=== PATIENT | male | born 1970 | race Caucasian/White ===

== ENCOUNTER 2019-04-26 10:05 | Emergency (ER) | payer BC ==
[~2019-04-26] VITALS: Ht 177.8 cm; Wt 86.2 kg
[2019-04-26 10:58] LABS: ABSOLUTE NEUTROPHILS 3.3 thou/uL (1.4-8.2); BASOPHILS 0.9 % (0.0-2.0); EOSINOPHILS 3.5 % (0.0-3.0); HEMOGLOBIN 15.7 gm/dL (14.0-18.0); LYMPHOCYTES 26.6 % (24.0-44.0); MCH 30.2 pg (26.0-34.0); MCV 86.5 fL (80.0-100.0); MONOCYTES 10.5 % (1.0-8.0); PLATELET COUNT 245 thou/uL (150-400); POLYS 58.5 % (36.0-66.0); RDW 13.8 % (10.5-14.5); WBC 5.7 thou/uL (4.0-11.0)
[2019-04-26 11:12] LABS: CALCIUM 8.8 mg/dL (8.5-10.1); POTASSIUM 3.9 mmol/L (3.5-5.1)
[2019-04-26 11:18] LABS: ALBUMIN 3.6 g/dL (3.4-5.0); TOTAL BILIRUBIN 0.6 mg/dL (<0.1-1.0); TOTAL PROTEIN 7.2 g/dL (6.4-8.2)
[2019-04-26 12:21] LABS: URINE BILIRUBIN NEGATIVE (Negative); URINE BLOOD NEGATIVE (Negative); URINE CLARITY CLEAR; URINE COLOR YELLOW; URINE GLUCOSE-RANDOM* NEGATIVE (Negative); URINE KETONES NEGATIVE (Negative); URINE LEUKOCYTES-REFLEX NEGATIVE (Negative); URINE NITRITE-REFLEX NEGATIVE (Negative); URINE PROTEIN (DIPSTICK) NEGATIVE (Negative); URINE UROBILINOGEN 0.2 E.U./dl (0.2-1.0)
[2019-04-26 12:40] VITALS: BP 127/99
== END 2019-04-26 12:40 | disposition home or self-care (01) ==
LOC: ER 10:05
PROVIDERS: Physician Assistant
DX: R10.32 Left lower quadrant pain (principal)

== ENCOUNTER 2021-04-02 09:25 | Inpatient (IN) | payer BC, OTHER ==
[~2021-04-02] VITALS: Ht 175.3 cm; Wt 80.3 kg
[2021-04-02] VITALS (7 sets, daily range): BP systolic 118–148; BP diastolic 75–89
[~2021-04-02 09:25] MED LIST: DOXYCYCLINE 10100 MG PO; NAPROSYN500 MG PO; TYLENOL325 M1 PO
[2021-04-02 10:22] LABS: HEMATOCRIT 43.8 % (42.0-52.0); HEMOGLOBIN 14.8 gm/dL (14.0-18.0); MCH 29.4 pg (26.0-34.0); MCHC 33.8 g/dL (28.0-37.0); MCV 87.1 fL (80.0-100.0); PLATELET COUNT 287 thou/uL (150-400); RBC 5.03 mil/uL (4.50-6.00); RDW 14.3 % (10.5-14.5); WBC 17.5 thou/uL (4.0-11.0)
[2021-04-02 10:46] LABS: ANION GAP 10 mmol/L (7-16); BUN 18 mg/dL (7-18); CALCIUM 8.4 mg/dL (8.5-10.1); CHLORIDE 101 mmol/L (98-107); CO2 24 mmol/L (21-32); GLUCOSE 107 mg/dL (74-106); SODIUM 135 mmol/L (136-145)
[2021-04-02 10:57] LABS: ALBUMIN 2.6 g/dL (3.4-5.0); DIRECT BILIRUBIN 0.4 mg/dL (<0.1-0.2); SGOT 99 U/L (15-37); SGPT 385 U/L (30-65); TOTAL BILIRUBIN 0.9 mg/dL (0.2-1.0); TOTAL PROTEIN 7.3 g/dL (6.4-8.2); TROPONIN-I <0.06 ng/mL (<0.06)
[2021-04-02] MEDS ORDERED: FLEXERIL PO (11:40)
[2021-04-02] MEDS ORDERED: NORCO7.5 PO (11:40)
--- NOTE | 2021-04-02 13:38 | NUR ---
ADMISSION: PT ARRIVED TO UNIT APPROXIMATELY 1120 FROM ED. PT ALERT, LETHARGIC, WEAK. PT NODDED OFF FREQUENTLY DURING ASSESSMENT/QUESTIONS. PT STATES HE HAS BEEN NODDING OFF SINCE HE STARTED FEELING BAD. PT HAS 2 PATENT IV SITES. IS ABLE TO USE URINAL. FALL PRECAUTIONS IN PLACE. PT HAS RAISED RED AREA ON R FOREARM. PT UNSURE HOW THE RED AREA APPEARED. THIS RN NOTIFIED DR DREW OF DUPLICATE ORDERS WELL RED AREA ON FOREARM. PT SISTER VISITING. STATES THEY HAVE A LOT OF SPIDERS IN THE HOME AND HAS CONCERNS IT MAY BE A SPIDER BITE.
[2021-04-02 13:41] LABS: ABSOLUTE NEUTROPHILS 14.4 thou/uL (1.4-8.2); METAMYELOCYTES 1 %
--- NOTE | 2021-04-02 16:29 | NUR ---
PT STATES DIFFICULTY URINATING, ONLY HAD "A DRIBBLE" THIS MORNING. UNABLE TO VOID ON BSC. PT REQUESTED TO BE STRAIGHT CATH. THIS RN USED BLADDER SCANNER, 889ML ON SCAN. REPORTED TO DR DREW. STRAIGHT CATH AND ENEMA ORDERED PRN.
--- NOTE | 2021-04-02 21:10 | NUR ---
2015: DR EATON HERE TO SEE PATIENT. CT SCAN ORDERED AND CALL BACK REQUESTED FOR TONIGHT ON RESULTS.
--- NOTE | 2021-04-02 21:11 | NUR ---
2005: PT TAKEN TO CT SCAN
[2021-04-03 00:17] VITALS: BP 124/94
--- NOTE | 2021-04-03 01:15 | NUR ---
ATTEMPTED TO NOTIFY DR EATON OF RESULTS OF THE CT SCAN,IRVIN. LEFT MESSAGE WITH ANSWERING SERVICE. ALSO, PHONED HIS HOME NUMBER WITH ANSWER.
--- NOTE | 2021-04-03 01:17 | NUR ---
BLADDER SCANNED AT THIS TIME. RESULT OF 440 IN BLADDER, PT IS NOT UNCOMFORTABLE AND REFUSES TO BE STRIAGT CATHETERIZED AT RIGHT NOW. HE COMPLAINS OF HUNGER AND IS EATING A SANDWICH BOX LUNCH. NEW ORDER FOR ADDITIONAL ANTIBIOTICS STARTED. CONTINUES ON IV FLUIDS.
[2021-04-03 02:00] VITALS: BP 124/94
[2021-04-03 03:24] VITALS: BP 128/82
--- NOTE | 2021-04-03 04:33 | NUR ---
continues to try to use the urinal. he is feeling the urge to urinate. refuses to allow a straight cath at this time.
[2021-04-03 05:37] LABS: URINE BILIRUBIN NEGATIVE (Negative); URINE BLOOD NEGATIVE (Negative); URINE CLARITY CLEAR; URINE COLOR YELLOW; URINE GLUCOSE-RANDOM* NEGATIVE (Negative); URINE KETONES NEGATIVE (Negative); URINE LEUKOCYTES-REFLEX NEGATIVE (Negative); URINE NITRITE-REFLEX NEGATIVE (Negative); URINE PROTEIN (DIPSTICK) 1+ (Negative); URINE UROBILINOGEN >= 8.0 E.U./dl (0.2-1.0)
[2021-04-03 05:48] LABS: AMP/METHAMP POSITIVE (Negative); BARBITURATES Negative (Negative); BENZODIAZEPINES Negative (Negative); COCAINE Negative (Negative); METHADONE Negative (Negative); OPIATES POSITIVE (Negative); PCP Negative (Negative)
[2021-04-03 05:53] LABS: ABSOLUTE NEUTROPHILS 6.9 thou/uL (1.4-8.2); BASOPHILS 0.5 % (0.0-2.0); EOSINOPHILS 1.9 % (0.0-3.0); HEMATOCRIT 40.2 % (42.0-52.0); HEMOGLOBIN 13.5 gm/dL (14.0-18.0); LYMPHOCYTES 16.1 % (24.0-44.0); MCH 29.8 pg (26.0-34.0); MCHC 33.6 g/dL (28.0-37.0); MCV 88.9 fL (80.0-100.0); MONOCYTES 14.7 % (1.0-8.0); PLATELET COUNT 243 thou/uL (150-400); POLYS 66.8 % (36.0-66.0); RBC 4.52 mil/uL (4.50-6.00); RDW 14.9 % (10.5-14.5); WBC 10.3 thou/uL (4.0-11.0)
[2021-04-03 05:55] LABS: BACTERIA-REFLEX 1-9 Few /HPF (None Seen); CASTS None Seen /LPF (None Seen); CRYSTALS None Seen /LPF (None Seen); MUCUS 4-6 Moderate strn/LPF (None Seen); SQUAMOUS None Seen /LPF (0-3); URINE RBC None Seen /HPF (NONE SEEN); URINE WBC-REFLEX 0-5 Rare /HPF (0-5)
[2021-04-03 06:16] LABS: ALBUMIN 2.5 g/dL (3.4-5.0); CALCIUM 8.2 mg/dL (8.5-10.1); POTASSIUM 4.4 mmol/L (3.5-5.1); TOTAL PROTEIN 7.5 g/dL (6.4-8.2)
[2021-04-03 07:56] VITALS: BP 144/85
[2021-04-03 15:57] VITALS: BP 148/81
--- NOTE | 2021-04-03 16:06 | NUR ---
DR JACK, ENT RETURNED CALL FOR CONSULT. THIS RN PROVIDED REPORT, DR JACK STATED HE WOULD REACH OUT TO DR EATON FOR DIRECT COMMUNICATION. STATED HE HAD HIS PHONE NUMBER.
--- NOTE | 2021-04-03 17:59 | NUR ---
PT FAMILY, BRIDGET SKINNER, REQUESTED TO THIS RN THAT THE PT GIRLFRIEND, ALICIA GRAY TO NOT BE ALLOWED TO VISIT PT DUE TO NEW INFORMATION PRESENTED IN FRONT OF DR EATON OF PT DRUG USE/PT GIRLFRIEND DRUG USE. THIS RN CONTACTED [employer], [employer]; SPOKE TO GERARDO CAMEJO PAEDIATRIC THORACIC PHYSICIAN; SECURITY, STEVE TO VERIFY CORRECT PROCEDURE IN MAKING PT CONFIDENTIAL. THIS RN SPOKE TO YURI, ADMITTING TO CHANGE PT TO CONFIDENTIAL, PLANS WILL BE TO MOVE PT TO ROOM 362 BY NURSING STATION FOR CLOSE OBSERVATION.
[2021-04-03 19:42] VITALS: BP 136/84
--- NOTE | 2021-04-03 19:55 | NUR ---
PAGED DR. YOANA EATON REGARDING [facility] TROUGH OF 12 AWAITING RETURN CALL.
[2021-04-04 00:05] LABS: HEP B SURFACE Ab(ANTI-HBS Non Reactive (()); HEPATITIS B SURFACE AG Negative (Negative); HEPATITIS C VIRUS AB >11.0 (0.0-0.9); HIV ANTIBODY Non Reactive (Non Reactive)
[2021-04-04 03:56] VITALS: BP 138/88
[2021-04-04 05:20] LABS: ABSOLUTE NEUTROPHILS 6.2 thou/uL (1.4-8.2); BASOPHILS 0.4 % (0.0-2.0); EOSINOPHILS 2.2 % (0.0-3.0); HEMATOCRIT 36.8 % (42.0-52.0); HEMOGLOBIN 12.7 gm/dL (14.0-18.0); LYMPHOCYTES 13.8 % (24.0-44.0); MCH 30.2 pg (26.0-34.0); MCHC 34.5 g/dL (28.0-37.0); MCV 87.7 fL (80.0-100.0); MONOCYTES 13.5 % (1.0-8.0); PLATELET COUNT 269 thou/uL (150-400); POLYS 70.1 % (36.0-66.0); RBC 4.19 mil/uL (4.50-6.00); RDW 14.4 % (10.5-14.5); WBC 8.8 thou/uL (4.0-11.0)
[2021-04-04 05:30] LABS: ALBUMIN 2.4 g/dL (3.4-5.0); CALCIUM 8.2 mg/dL (8.5-10.1); CREATININE 0.9 mg/dL (0.7-1.3); POTASSIUM 3.9 mmol/L (3.5-5.1); TOTAL BILIRUBIN 1.2 mg/dL (0.2-1.0)
--- NOTE | 2021-04-04 07:27 | NUR ---
progress iv fluids and iv antibiotics admininstered as ordered 1 dose of hydrocodone given and one dose of morphine, pt slept most of shift warm blankets to neck for comfort moved to room 362 to monitor visitors for pt safety.
[2021-04-04 07:51] VITALS: BP 174/105
--- NOTE | 2021-04-04 11:16 | 2DMMODE ---
[facility] [address] [place] [address] 2 D/M-MODE ECHOCARDIOGRAM Name: FAY SKINNER Room #: 362-P ADM IN M.R.#: [id number] Admission: 04/02/21 Attend Phys: Bennie Newton Discharge: Date of : 72 Report #: [id number] THIS REPORT FOR: cc: FAM - No family physician/PCP FAM - No family physician/PCP Charles Flores MD ~ APPROVED REPORT Study performed: 04/04/2021 10:29:54 EXAM: Comprehensive 2D, Doppler, and color-flow Echocardiogram Patient Location: Bedside Room #: 362 Status: routine BSA: 2.08 HR: 110 bpm BP: 175/105 mmHg Rhythm: Sinus Tach Other Information Study Quality: Good Indications Fever, bacteremia, evaluate for endocarditis. 2D Dimensions RVDd: 39.32 mm IVSd: 10.10 (7-11mm) LVOT Diam: 20.58 (18-24mm) LVDd: 55.34 mm PWd: 10.29 (7-11mm) Ascending Ao: 32.57 (22-36mm) LVDs: 38.39 (25-40mm) Left Atrium: 40.55 (27-40mm) Aortic Root: 31.38 mm Volumes Left Atrial Volume (Systole) Single Plane 4CH: 39.95 mL Single Plane 2CH: 52.84 mL LA ESV Index: 24.00 mL/m2 Aortic Valve AoV Peak Gerald.: 2.20 m/s AO Peak Gr.: 19.34 mmHg LVOT Max P.25 mmHg LVOT Max V: 1.60 m/s NINA Vmax: 2.42 cm2 [facility] [address] [place] [address] 2 D/M-MODE ECHOCARDIOGRAM Name: FAY SKINNER Room #: 362-P [facility].#: [id number] Admission: 04/02/21 Attend Phys: Bennie Agarwal Discharge: Date of : 72 Report #: [id number] Mitral Valve E/A Ratio: 0.7 MV Decel. Time: 124.67 ms MV E Max Gerald.: 0.83 m/s MV A Gerald.: 1.24 m/s MV PHT: 36.15 ms IVRT: 57.67 ms Pulmonary Valve PV Peak Gerald.: 1.32 m/s PV Peak Gr.: 6.93 mmHg Tricuspid Valve TR Peak Gerald.: 2.68 m/s RAP Estimate: 7.00 mmHg TR Peak Gr.: 29.00 mmHg PA Pressure: 36.00 mmHg Left Ventricle The left ventricle is normal size. There is normal LV segmental wall motion. There is normal left ventricular wall thickness. Left ventricular systolic function is normal. LVEF is 55-60%. Mild diastolic dysfunction is present (impaired relaxation pattern). Right Ventricle The right ventricle is normal size. The right ventricular systolic function is normal. Atria The left atrium size is normal. The right atrium size is normal. Aortic Valve The aortic valve is normal in structure. No aortic regurgitation is present. There is no aortic valvular stenosis. Mitral Valve The mitral valve is normal in structure. There is no mitral valve regurgitation noted. No evidence of mitral valve stenosis. Tricuspid Valve The tricuspid valve is normal in structure. Trace tricuspid regurgitation. Estimated PAP is 36mmHg. Pulmonic Valve The pulmonary valve is normal in structure. There is no pulmonic [facility] [place] [address] 2 D/M-MODE ECHOCARDIOGRAM Name: FAY SKINNER Room #: 362-P [facility] IN M.R.#: [id number] Admission: 04/02/21 Attend Phys: Bennie Agarwal Discharge: Date of : 72 Report #: [id number] valvular regurgitation. Great Vessels The aortic root is normal in size. The ascending aorta is normal in size. IVC is normal in size and collapses <50% with inspiration. Pericardium There is no pericardial effusion. <Conclusion> The left ventricle is normal size. Left ventricular systolic function is normal. LVEF is 55-60%. The aortic valve is normal in structure. No aortic regurgitation is present. The mitral valve is normal in structure. There is no mitral valve regurgitation noted. The tricuspid valve is normal in structure. Trace tricuspid regurgitation. Estimated PAP is 36mmHg. The pulmonary valve is normal in structure. The aortic root is normal in size. There is no pericardial effusion. <ELECTRONICALLY SIGNED> By: Charles Flores MD 04/04/21 1116 111 111 Charles Flores MD /INF
[2021-04-04 12:02] VITALS: BP 161/100
[2021-04-04 15:58] VITALS: BP 164/114
--- NOTE | 2021-04-04 19:48 | NUR ---
ASSUMED PATIENT CARE AT 0700. A/O X2-3. DROWSY. FEBRLIE. BP ELAVETED. RIGHT ARM AND HAND EDEMA. WILL HAVE US. CONSULTED DR NICHOLS. WILL REPEAT CT OF NECK IN AM. PAIN MEDS GIVEN. FAMILY AND BEDSIDE. NOT TOWARDS POC GOALS.
[2021-04-04 20:00] VITALS: BP 151/94
[2021-04-05 04:00] VITALS: BP 159/100
--- NOTE | 2021-04-05 06:33 | NUR ---
ASSESSMENT DOCUMENTED.PT BEEN RESTING IN MILD ACUTE DISTRESS.PT SLEEPING MOST OF THE TIME BUT EASY TO AROUSE.A/OX4.C/O PAIN TO BACK/SHOULDERS AND NECKS THAT IS RELIEVED BY REPOSITIONING AND PAIN MEDS.FEBRILE,TYLENOL SUPP GIVEN PER ORDER.ON ABT Q4H.RIGHT ARM EDEMATOUS AND HAS ERYTHEMA,ELEVATED ON PILLOW.NO SIGNIFICANT CHANGES NOTED THIS SHIFT.WILL CONT TO MONITOR PER POC.
[2021-04-05 07:42] VITALS: BP 148/86
--- NOTE | 2021-04-05 14:27 | NUR ---
INITIAL ASSESSMENT: ALEXANDRU reviewed chart and spoke with nursing and attending physician. Pt was admitted from home due to bacteremia. Pt is febrile and on IV abx. Pt to have CT scan and MRI today. Per chart, pt with hx of IV drug use. ALEXANDRU met with pt at bedside. No family present. Introduced role of SW. Pt is lethargic but alert/orientated. Pt reports he lives at home with his brother. Prior to admission, pt was independent with ADLs. No use of DME. Pt does not currently have a PCP. ALEXANDRU discussed with pt that he is listed as a confidential pt. Pt states he does not feel that is necessary. ALEXANDRU reviewed authorized contact list, which has his sister, Radha. Pt confirms and states he does not wish to add anyone else to the contact list. ALEXANDRU updated pt's nurse. Therapy evals requested. ALEXANDRU is following to assist as needed with discharge planning.
[2021-04-05 15:32] VITALS: BP 155/98
--- NOTE | 2021-04-05 18:06 | NUR ---
ASSUMED PATIENT CARE AT 0700. A/0 X3. DROWSY. AFEBRILE. VSS. PAIN MEDS GIVEN. WILL NPO AFTER MIDNIGHT TO HAVE RIGHT ARM ABCESS DRAIN. SLOWLY TOWARDS POC GOALS.
[2021-04-05 20:22] VITALS: BP 154/108
[2021-04-06 05:25] VITALS: BP 175/102
[2021-04-06 05:49] LABS: HEMATOCRIT 40.1 % (42.0-52.0); HEMOGLOBIN 13.6 gm/dL (14.0-18.0); MCH 29.5 pg (26.0-34.0); MCHC 33.8 g/dL (28.0-37.0); MCV 87.2 fL (80.0-100.0); PLATELET COUNT 339 thou/uL (150-400); RDW 14.8 % (10.5-14.5); WBC 13.7 thou/uL (4.0-11.0)
[2021-04-06 06:05] LABS: ALBUMIN 2.3 g/dL (3.4-5.0); CALCIUM 8.1 mg/dL (8.5-10.1); CREATININE 0.8 mg/dL (0.7-1.3); POTASSIUM 4.3 mmol/L (3.5-5.1); TOTAL BILIRUBIN 1.3 mg/dL (0.2-1.0); TOTAL PROTEIN 7.3 g/dL (6.4-8.2)
[2021-04-06 06:33] LABS: ABSOLUTE NEUTROPHILS 9.7 thou/uL (1.4-8.2)
[2021-04-06 06:34] LABS: PLATELET ESTIMATE NORMAL
--- NOTE | 2021-04-06 07:36 | NUR ---
IVF AND PAIN MANAGEMENT WAS POC FOR EVENING. PT IS A/0X2 AND IS VERY IMPULSIVE. PT ALSO REMOVES TELE FREQUENTLY. ID ROUNDED AND HAD NEURO SURGERY CONSULTED. SPOKE TO THE PA FROM . SAID PT WILL NEED TO BE TRANSFERRED TO [facility] DUE TO DR MARTINEZ BEING ON VACATION. DR[place] [facility] [place]. MART[place]Z. CALLED [facility]. ALL 37 PAGES FAXED TO [facility]. CALLED BACK AND SAID TO CALL BACK AT 0800 ON 04/06 TO SEE WHEN BED WILL BE AVAILABLE. ALL PAPER WORK IN [employer] WITH TRANSFER FORM AND [facility] TRANSPORT FORM. INFORMATION PASSED ON TO ON COMING NURSE.
[2021-04-06 08:18] VITALS: BP 155/104
--- NOTE | 2021-04-06 08:20 | NUR ---
ALEXANDRU notified by attending physician this morning that pt needs to transfer to [facility] for neurosurgery services due to epidural abscess at C3-C4. patient scheduling manager nurse had contacted the [facility] transfer center and faxed over clinical. ALEXANDRU placed call to [facility] Transfer center and spoke with NGHIA Calixto. Additional info provided. Contact info for attending physician provided. Awaiting for acceptance by [facility] and a bed assignment. ALEXANDRU spoke with Arielle in radiology to have images uploaded to the [facility] to [facility]. [facility] ambulance form and Transfer form placed on pt's chart. Chart copy completed. ALEXANDRU is following to assist as needed with transfer.
[2021-04-06 16:00] VITALS: BP 164/101
--- NOTE | 2021-04-06 18:31 | NUR ---
ASSUMED PATIENT CARE AT 0700. A/O X4 DROWSY. PAIN MEDS GIVEN NEED. VSS. AFEBRILE. WILL TRANSFER TO [place] [address] AT 2030.
== END 2021-04-06 21:17 | disposition short-term general hospital (02) | DRG 871 ==
LOC: ER 09:25 → 3W 09:51 → EROBS 09:51 → 3W 09:51
PROVIDERS: Emergency Medicine; Specialist; ADMIT Hospitalist; ATTEND Hospitalist
DX: A41.9 Sepsis, unspecified organism (principal); G03.9 Meningitis, unspecified; G06.2 Extradural and subdural abscess, unspecified; L02.11 Cutaneous abscess of neck; I38 Endocarditis, valve unspecified; E87.1 Hypo-osmolality and hyponatremia; M86.8X8 Other osteomyelitis, other site; B95.8 Unspecified staphylococcus as the cause of diseases classified elsewhere; F90.9 Attention-deficit hyperactivity disorder, unspecified type; F10.20 Alcohol dependence, uncomplicated; Y90.9 Presence of alcohol in blood, level not specified; I07.1 Rheumatic tricuspid insufficiency; M46.42 Discitis, unspecified, cervical region; Z20.822 Contact with and (suspected) exposure to COVID-19; Z79.899 Other long term (current) drug therapy; Z23 Encounter for immunization
CPT/HCPCS: 10879

== ENCOUNTER → 2021-11-01 | Outpatient (CLI) | payer BC, OTHER ==
[~2021-11-01] VITALS: Ht 177.8 cm; Wt 79.4 kg
[~2021-11-01] MED LIST changes: +DIAZEPAM 5 MG5 M1 PO; +ELIQUIS5 MG PO; +ENDOCET 7.5-321 EACH PO; +FLEXERIL PO; +LIDODERM1 EACH TOP; +METHOCARBAMOL750 MG PO; +NEURONTIN 300M300 M2 PO; +NORCO7.5 PO; +PERCOCET 10-321 EAC1 PO; +TOBREX5 ML OPHTHALMIC
[2021-11-01 10:06] VITALS: BP 120/85
--- NOTE | 2021-11-01 10:25 | NUR ---
Pain Clinic Assessment: 1. History of Osteoarthritis: BACK BILATERAL KNEES History of Rheumatoid Arthritis: 2. Height: 5 ft. 10 in. 177.8 cm. Weight: 175.0 lb. oz. 79.380 kg. Patient's BMI: 25.1 3. Vital Signs: BP: 120/85 Pulse: 101 Resp: 14 Temp: 02 Sat: 95 ECG Mon: 4. Pain Intensity: 6 5. Fall Risk: Dizziness: N Needs help standing or walking: Y Fallen in the last 3 months: N Fall risk comments: 6. Patient on Blood Thinner: ELIQUIS 7. History of Hypertension: N 8. Opioid Therapy greater than 6 weeks: Opiate Contract Signed: 9. Risk Assessment Tool Provided: 3 LOW RISK 10. Functional Assessment Tool: 65/70 11. Recreational Drug Use: Never Drug Type: Tobacco Use: Vaping Tobacco Type: E-Cigarettes Amount or Packs/day: How Many Years: Alcohol Use: No Frequency: Quant:
--- NOTE | 2021-11-02 09:44 | HPC ---
[facility] [place] [address] PAIN MANAGEMENT CONSULTATION Name: FAY WELCH Chuck Room #: REG KATHY Odonnell#: [id number] Admission: 11/01/21 Attend Phys: Eric Ann DO Discharge: Date of : 72 Report #: [id number] THIS REPORT FOR: cc: Eric Small,Eric Silverman DO ~ cc: Eric Small DO DATE OF SERVICE: 11/01/2021 REFERRING PHYSICIAN: Dr. Eric Small. CHIEF COMPLAINT: Body wide pain. HISTORY OF PRESENT ILLNESS: As you know, the patient is an unfortunate 51-year-old male who began experiencing neck pain, upper extremity pain, low back pain and bilateral lower extremity pain on 04/01/2021. The patient was found to have a spontaneous development of osteomyelitis of the cervical spine, requiring a 9-hour surgery to address. This was performed at the [facility] at the [place]. He was treated by Dr. Lu, the neurosurgeon. He has had continued upper extremity pain and paresthesias that had been treated by his primary care physician with Percocet 7.5/325 2 tabs per day. The patient was complaining that his symptoms were not well controlled with that dosing of medication and he was advised by his primary care physician that they would not be able to provide opioid medications greater than 7.5 mg of oxycodone twice a day. The patient was advised that the physician's licensure would not allow for higher dosing. The patient was given the opportunity to consult with Pain Management to be provided suggestions for treatment and adjustments in his therapy then to be returned to referring physicain to continue management. Mr. Welch was referred to our clinci to discuss options for treatment to optimize therapy and return his care to the referring physician to continue the suggested therapy. The patient reports today his pain is constant. He describes the pain more of a shooting, aching, sharp, numbness and tingling when describing pain. He places current pain score at 8/10. Daily average at 8-10/10. Worst pain has been is 10/10. The patient states the pain is present all day long. There does not to be any inciting activity that exacerbates symptoms and he has noted no benefit with current medication. He has been referred to our service to provide suggestions of treatment, optimize medication, and return his care to his PCP. PAST MEDICAL HISTORY: 1. Degenerative joint disease. 2. Osteoarthritis. 3. Osteomyelitis of the cervical spine. 4. Anxiety disorder. 5. Deep vein thrombosis requiring chronic anticoagulation. 6. Insomnia. [address] [address] PAIN MANAGEMENT CONSULTATION Name: FAY WELCH Room #: REG KATHY Odonnell#: [id number] Admission: 11/01/21 Attend Phys: Eric Ann DO Discharge: Date of : 72 Report #: [id number] PAST SURGICAL HISTORY: 1. Cervical laminectomy and fusion of C2 through C6. 1. Spinal cage implantation. SOCIAL HISTORY: The patient reports he is a nonsmoker. He denies IV or illicit drug use. Denies any chronic alcohol use. He is currently on permanent disability, has been so for 10 years for reports of osteoarthritis. He is not receiving any disability income or benefits due to his current symptoms. He is not in litigation in regards to his current pain. He is accompanied by his family member present in room today. REVIEW OF SYSTEMS: Positive for weight gain, fatigue and weakness, wearing corrective eyewear, nocturia, numbness and tingling sensations, incomplete paralysis, depression, insomnia, osteoarthritis. All other review of systems negative per 12-point review of systems other than those listed in history of present illness. Pain impact score 65-70 near complete interference of daily activities secondary to pain. ALLERGIES: No reported drug allergies. CURRENT MEDICATIONS: Methocarbamol 750 mg t.i.d., Eliquis 5 mg b.i.d., Percocet 7.5/325 one tab every 8 hours p.r.n. for pain, cyclobenzaprine 10 mg per day. IMAGING: MRI of cervical spine 04/24/2021 shows a disk osteomyelitis with epidural abscess from C3 through C5 and retropharyngeal abscess of the neck. PHYSICAL EXAMINATION: VITAL SIGNS: Blood pressure 120/85, pulse is 101, respiratory rate 14 and unlabored. The patient is 95% on room air. Height 5 feet 10 inches tall, weight 175 pounds, BMI calculated 25.1. GENERAL: Well-developed, well-nourished, well-hydrated 51-year-old male, appears his stated age. He is in no acute distress. Awake, alert and oriented x 3. Pain is rated today at 8/10. HEENT: Normocephalic, atraumatic. Pupils are round. He is wearing a facemask in compliance with COVID-19 regulations. Speech is normal and he is deemed a good historian. LUNGS: Clear, no wheeze, rhonchi or rales. CARDIOVASCULAR: Regular. No appreciable gallop, no rub. ABDOMEN: Soft. EXTREMITIES: Show no clubbing, no appreciable cyanosis, no edema. MUSCULOSKELETAL: Upper extremity strength is weakened bilaterally. There are contractures of the hands bilaterally. There does appear to be some muscle atrophy bilaterally. Weakness is noted with all actions of movement. There does not appear to be any clonus. There is no palpatory tenderness over the paraspinal musculature of cervical spine. Well-healed surgical scars are noted [address] [address] PAIN MANAGEMENT CONSULTATION Name: FAY WELCH Room #: REG KATHY Jerez.#: [id number] Admission: 11/01/21 Attend Phys: Eric Ann DO Discharge: Date of : 72 Report #: [id number] in the cervical area. He is intact to light touch from C5 through T1 dermatomes though the tactile sensation is "body." Lower extremity strength is decreased bilaterally. Due to deconditioning, the strength would be rated at 4.5/5 and symmetrical. ASSESSMENT: 1. Generalized pain secondary to osteomyelitis of the cervical spine and subsequent nerve injury. 2. Peripheral neuropathy. 3. Opioid dependency. 4. Chronic intractable pain. PLAN: 1. The patient has been referred to our service by the primary care team to assist in optimizing medication management with plans to return to the patient's care once that optimization has been completed. The patient is currently taking Percocet 7.5/325 one tab p.o. every 12 hours p.r.n. for pain and noting no benefit. We discussed with the patient that opioid medication is not a long-term medication management goal that the symptoms he is currently experiencing appears to be more neuropathic in origin, specifically with the symptoms of his upper extremities. He has been on chronic opioids for osteoarthritis of the hip and knees, though I am not aware of why the patient will be on any type of opioid medication for osteoarthritis as this is not the appropriate treatment course. We discussed this with the patient today. We have agreed to optimize his medication management as he has been left without Neurosurgery as his neurosurgeon has left the [facility]'s system and has not been able to reestablish care with any physicians there. He has been sent back to his primary care physician who has advised the patient that he is unable to write opioid medication greater than Percocet 7.5/325 twice a day based on licensure restrictions, though I am not aware of any licensure restrictions that would allow just that specific limitation. We have agreed to help optimize the patient's medication management, then returning his care back to the referring physician after optimization of treatment for chronic pain has been completed. I do feel that additional neuropathic medication will be of benefit. We also discussed the other treatment options as follows. We discussed that his improvement in symptoms, will require consistent physical therapy with strengthening and some deep desensitization for the peripheral neuropathy. This will be a major component of his treatment. We also discussed with the patient that an additional neuropathic medication will be beneficial. In conjunction with these adjustments in medication management, a higher dose of opioid medication at present might be agreeable with the understanding that the opioid medications would be weaned quite quickly as he shows improvement. We discussed also with the patient the possibility of an intrathecal pump implantation, though we do not offer that at our clinic. He could look at this type of treatment through [facility], Pain or [address] [address] PAIN MANAGEMENT CONSULTATION Name: FAY WELCH Room #: REG Doris Odonnell#: [id number] Admission: 11/01/21 Attend Phys: Eric Ann DO Discharge: Date of : 72 Report #: [id number] [facility]. We also discussed with the patient surgical options, though given the extent of his recent surgery, I am not confident that surgical options would provide much benefit. After reviewing the risks and benefits of all proposed treatment options, the patient agreed to make adjustments in medication management with understanding he will be returning to his PCP to continue therapy once optimized. 2. The patient will be started on gabapentin 300 mg dose. He will start 1 tab p.o. at bedtime for 3 nights and increase to 2 tabs p.o. at bedtime for 3 nights, then 3 tabs p.o. at bedtime for 3 nights. If no improvement in symptoms, no side effects of sleepiness, disorientation, confusion, and mental slowing, then begin 1 tab in the morning, continuing 3 tabs at night, continuing up to 3 tabs in the morning and 3 tabs at night or 900 mg b.i.d. If again no improvement in symptoms, no side effects, then begin titrating to reach 900 mg 3 times a day. He was given a titration schedule in written form to follow. A prescription of 270 gabapentin 300 mg tablets were sent to local pharmacy. The patient can contact our clinic with any questions or concerns in regards to the titration of medication. I did advise the patient during the titration once he notes improvement in symptoms, stabilize at that dose, no further escalation. 3. We have agreed to adjust the patient's oxycodone for a short period of time to increase the dose to 10 mg and provide the medication 3-4 times a day. This is not to be relied on prophylactically. I have given the patient #120 tablets with no refills. The patient will take the medication as directed. He is not to exceed more than 4 tablets a day and only used for 4 tablets if his pain is intolerable. The prescription was sent via e-scribe to local pharmacy. We did review the patient's PDMP. He does seem to be receiving medications through Dr. Small, who has been prescribing oxycodone 7.5/325 twice a day. Our plan is to see the patient back in followup visit in 1 month to review efficacy of the medication adjustments today. If the patient is not seeing much in the way of improvement or is relying on the opioid medication consistently, I would recommend a referral for an intrathecal pump to address his ongoing pain issues. I did advise the patient we would be providing no more than a 3-month period of treatment for adjustments and optimization of management and I will be returning his care to the referring physician to continue that care. The patient is agreeable with that plan and is agreeable with the understanding of 3 months of treatment through our services. 4. We wish to thank Dr. Small for the opportunity to see the patient in consultation. We will keep you apprised of his treatment as we optimize his medication in preparation for return back to your capable services. Hopeful the adjustments made in medication management will be beneficial. If it is not, I would recommend a referral to [facility], [place] [address] PAIN MANAGEMENT CONSULTATION Name: FAY WELCH Room #: REG KATHY Odonnell#: [id number] Admission: 11/01/21 Attend Phys: Eric Ann DO Discharge: Date of : 72 Report #: [id number] Lawson You for intrathecal pump therapy evaluation. Again, we wish to thank you for the opportunity to see the patient in consultation. <ELECTRONICALLY SIGNED> By: Eric Ann DO 11/02/21 0944 [id number] 2035 Eric Ann DO /nt
== END ==
LOC: PAIN 10-26 06:55
PROVIDERS: ATTEND Anesthesiology Pain Medicine
DX: G62.89 Other specified polyneuropathies (principal); G89.29 Other chronic pain; F11.20 Opioid dependence, uncomplicated; Z79.899 Other long term (current) drug therapy

== ENCOUNTER → 2021-11-29 | Outpatient (CLI) | payer BC, OTHER ==
[~2021-11-29] VITALS: Ht 177.8 cm; Wt 81.6 kg
[~2021-11-29] MED LIST changes: +AMBIEN 10 MG TA10 MG PO; +BACLOFEN 10MG T10 MG PO; +DULOXETINE HCL30 MG PO
--- NOTE | ~2021-11-29 | HPC ---
[facility] [address] [address] PAIN MANAGEMENT CONSULTATION Name: FAY SKINNER Room #: REG [facility] Belle#: [id number] Admission: 11/29/21 Attend Phys: Eric Ann DO Discharge: Date of : 72 Report #: [id number] THIS REPORT FOR: cc: Eric Small,Eric Silverman DO ~ cc: Eric Small DO DATE OF SERVICE: 11/29/2021 REFERRING PHYSICIAN: Dr. Eric Small. CHIEF COMPLAINT: Body wide pain. HISTORY OF PRESENT ILLNESS: The patient is an unfortunate 51-year-old male who began experiencing neck pain, upper extremity pain, low back pain and bilateral lower extremity pain on 04/01/2021. 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 This was performed at [facility] at the [place] where the patient was treated by Dr. Fisher, the neurosurgeon. Despite the decompression of the cervical area and the resolution of his osteomyelitis, he continues to experience pain in the upper extremities and both bilateral lower extremities. He was started on Percocet by his primary care physician, taking a 7.5/325 two tabs per day. He was complaining the pain was not well controlled. He was referred on to our clinic. We started the patient on a dose of oxycodone to provide more improved benefit as he heals from his ongoing pain and neuropathic issues. He is started in physical therapy and he is noticing no significant pain improvement with this activity. He is pleased with response to the combination of Neurontin and Percocet and wants to continue the therapy at this dosing. We had discussed at that initial visit that ultimately if he had to remain on chronic opioids, but we would recommend an intrathecal pump, which could also provide baclofen and local anesthetic in the form of bupivacaine and possibly the addition of some clonidine to help with pain control. This would reduce the reliance on immediate release medication and would not be a medication management route that would be soon disappearing due to opioid epidemic litigations. The patient returns today requesting refill on medications, understanding that these medications may ultimately be discontinued as they are harder to find at local pharmacies. The patient reports that with the medication, his pain is at a level of 6/10. He has been recently started on duloxetine 30 mg dose with plans to escalate to 60 mg. He is experiencing no side effects, and at present, no benefits. ALLERGIES: No known drug allergies. CURRENT MEDICATIONS: Baclofen 10 mg 4 tabs per day, zolpidem 10 mg p.o. at bedtime, duloxetine 30 mg once a day, gabapentin 900 mg 3 times a day, Percocet [place] [id number] PAIN MANAGEMENT CONSULTATION Name: FAY SKINNER Room #: [facility] Belle#: [id number] Admission: 11/29/21 Attend Phys: Eric Ann DO Discharge: Date of : 72 Report #: [id number] 10/325 one tab q. 6 hours p.r.n. pain, Tobrex 1 drop ophthalmic 4 times a day, Lidoderm patch applied topically q. 12 hours, diazepam 5 mg 3 times a day, methocarbamol 750 mg 3 times a day, Eliquis 5 mg once a day. SOCIAL HISTORY: The patient denies tobacco use. Denies IV or illicit drug use. Denies any chronic alcohol use. He is on permanent disability and has been so for an extended period of time. He is accompanied by his sister, present in room today. IMAGING: No new imaging available. PQRS: The patient has known arthritic changes of the lumbar spine, bilateral knees. He is at extreme fall risk, but has not had a fall in last 3 months. He is placing current pain score 6/10. He is on blood thinner in the form of Eliquis. He is not treated for hypertension. He is on chronic opioids and has a low opioid addiction potential based on assessment tool. Pain impact is 60/70, severe interference with daily activities secondary to pain. PHYSICAL EXAMINATION: VITAL SIGNS: Blood pressure 114/69, pulse 78, respiratory rate 14 and unlabored. The patient is 95% on room air. Height 5 feet 10 inches tall, weight 180 pounds, BMI calculated 25.8. GENERAL: Well-developed, well-nourished, well-hydrated, wheelchair bound 51-year-old male, pain rated around 6/10. HEENT: Normocephalic, atraumatic. Pupils are round. He is wearing a mask in compliance with COVID-19 regulations. EXTREMITIES: Show no clubbing, no cyanosis. No appreciable edema. MUSCULOSKELETAL: Upper extremity strength is weakened bilaterally. Contractures of the hands bilaterally. Muscle wasting and atrophy noted in the upper extremities, no clonus. There is no palpatory tenderness over the paraspinal musculature of the cervical spine, thoracic spine. Well-healed surgical scars are noted in the area. ASSESSMENT: 1. 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 2. Peripheral neuropathy. 3. Opioid dependency. 4. Chronic intractable pain. PLAN: 1. The patient returns today in followup visit for refill of medications. He is denying side effects to medication including sleepiness, disorientation, confusion, mental slowing or constipation. He feels the combinations are working well for pain control. At present, he is taking 4 oxycodone per day. I did advise the patient if further escalation in medication will be necessary, we [address] [address] PAIN MANAGEMENT CONSULTATION Name: FAY SKINNER Room #: REG KATHY Odonnell#: [id number] Admission: 11/29/21 Attend Phys: Eric Ann DO Discharge: Date of : 72 Report #: [id number] would not recommend oral medications, we would then have the patient seek evaluation and treatment with intrathecal pump therapy. The patient is agreeable with that plan. At present, he wants to remain at current dosing. 2. We reviewed the fact that opiate medications are being used to provide analgesia adequate to support activities of daily living, not attempting to achieve a specific pain score on the 0-10 Visual Analog Scale. The current opiate medications are providing sufficient analgesia to allow the patient to participate in activities of daily living. The patient is not exhibiting any aberrant behavior suggestive of drug diversion. The patient is not having any adverse reactions to medications. The patient is not suffering from daytime somnolence or mental acuity changes. The patient is managing opiate-induced constipation with appropriate vcnw-kai-rexjxni agents and dietary considerations. The patient was counseled on concern for caution with operating a motor vehicle while using opiate medications. A physical exam was performed and the patient's functional status was evaluated. All patients with back pain were advised against the bed rest greater than 4 days and were advised to return to normal activities. Pain score assessment was noted and the treatment plan was reviewed with the patient. All current medications, both prescribed and OTC were reviewed and reconciled on the electronic medical record. Tobacco screening was accomplished and smoking cessation was advised when indicated. BMI was noted and diet/exercise modification was recommended for all patients following outside normal parameters. I reviewed with the patient today their responsibilities to safeguard prescription medications, reviewed their responsibility to utilize medications only as prescribed by the physician. They are to seek and receive pain medications only from 1 physician group ( [facility]). They are to use 1 pharmacy and keep the clinic informed if they change pharmacies. Their responsibilities include making followup visits in a timely fashion and to avoid abrupt discontinuation of medication usage. Their responsibilities further include bringing their medications (bottles from the pharmacy with residual pills) to the visit for possible confirmation of pill counts and the patient understands it is their responsibility to submit to random drug screens to ensure both that the medications prescribed are present, and that no other controlled substances are present. All prescriptions provided today were generated electronically. 3. The patient was provided prescription of Percocet 10/325 one tab p.o. q. 6 hours p.r.n. pain. I have given the patient #120 to release today, a 1-month worth of medication. A prescription was sent via e-scribe to local pharmacy. 4. The patient was provided refill prescription of Neurontin 300 mg dose. He is to take 3 tabs t.i.d., #270 was provided with no refills. 5. We will see the patient back in followup visit in 1 month for medication management. I will keep you apprised of response to the medication and [facility] [address] [place] [address] PAIN MANAGEMENT CONSULTATION Name: FAY SKINNER Room #: MARIE Odonnell#: [id number] Admission: 11/29/21 Attend Phys: Eric Ann DO Discharge: Date of : 72 Report #: [id number] determine whether or not the patient needs to move forward with an intrathecal pump evaluation. By: [id number] Eric Ann DO /nt
[2021-11-29 13:04] VITALS: BP 114/69
--- NOTE | 2021-11-29 13:26 | NUR ---
Pain Clinic Assessment: 1. History of Osteoarthritis: BACK BILATERAL KNEES History of Rheumatoid Arthritis: 2. Height: 5 ft. 10 in. 177.8 cm. Weight: 180.0 lb. oz. 81.648 kg. Patient's BMI: 25.8 3. Vital Signs: BP: 114/69 Pulse: 78 Resp: 14 Temp: 02 Sat: 95 ECG Mon: 4. Pain Intensity: 6 TO 8 5. Fall Risk: Dizziness: N Needs help standing or walking: Y Fallen in the last 3 months: N Fall risk comments: 6. Patient on Blood Thinner: ELIQUIS 7. History of Hypertension: N 8. Opioid Therapy greater than 6 weeks: Opiate Contract Signed: 9. Risk Assessment Tool Provided: 3 LOW RISK 10. Functional Assessment Tool: 65/70 11. Recreational Drug Use: Never Drug Type: Tobacco Use: Vaping Tobacco Type: Amount or Packs/day: How Many Years: Alcohol Use: No Frequency: Quant:
== END ==
LOC: PAIN 09:49
PROVIDERS: ATTEND Anesthesiology Pain Medicine
DX: G89.29 Other chronic pain (principal); M46.22 Osteomyelitis of vertebra, cervical region; G62.9 Polyneuropathy, unspecified; F11.20 Opioid dependence, uncomplicated; Z79.899 Other long term (current) drug therapy